=== PATIENT | male | born 1985 | race Caucasian/White ===

== ENCOUNTER 2019-09-27 19:28 | Emergency (ER) | payer OTHER ==
[~2019-09-27] VITALS: Ht 182.8 cm; Wt 78.9 kg
[~2019-09-27 19:28] MED LIST: ACETAMINOPHEN-H1 TA2 PO; ALLEGRA180 MG PO; AMOXICILLIN500 MG PO; AMOXIL500 MG PO; CLEOCIN150 MG PO; CLINDAMYCIN HC300 MG PO; CLINDAMYCIN150 MG PO; DAYPRO600 M1 PO; DOXYCYCLINE MO100 MG PO; FIORICET 325 MG1 TAB PO; FLEXERIL10 MG PO; Fioricet 325 MG1 TAB PO; HYDROCODONE BIT1 T11 PO; IBU-8800 MG PO; MOTRIN800 MG PO; NAPROSYN500 MG PO; NAPROXEN500 MG PO; NKHM; NORCO 325 MG-51 TAB PO; PEN-VEE K500 MG PO; PEN-VK500 MG PO; PERIDEX 480 ML480 ML PO; ROBITUSSIN AC 110 ML PO; ROBITUSSIN DM120 ML PO; TRAMADOL HCL50 MG PO; TYLENOL W/CODEI1 TA2 PO; ULTRAM50 MG PO; VIBRAMYCIN100 MG PO; VICODIN 5/500 505 MG PO; ZITHROMAX Z PA250 MG PO; ZOFRAN ODT4 MG SL
[2019-09-27] MEDS ORDERED: TESSALON PERLE100 M1 PO (21:04)
[2019-09-27] MEDS ORDERED: ZITHROMAX250 MG PO (21:04)
[2019-09-27] MEDS ORDERED: MEDROL DOSEPAK4 MG PO (21:04)
== END 2019-09-27 21:17 | disposition home or self-care (01) ==
LOC: ED 19:28
DX: J20.9 Acute bronchitis, unspecified (principal); Z91.030 Bee allergy status

== ENCOUNTER 2019-11-04 13:54 | Inpatient (IN) | payer OTHER ==
[2019-11-04] VITALS: BP 96/51
[~2019-11-04] VITALS: Ht 185.4 cm; Wt 76.9 kg
[~2019-11-04 13:54] MED LIST changes: +MEDROL DOSEPAK4 MG PO; +TESSALON PERLE100 M1 PO; +ZITHROMAX250 MG PO
[2019-11-04 13:55] VITALS: BP 130/71
[2019-11-04 14:24] LABS: BILIRUBIN NEGATIVE (NEGATIVE); BLOOD NEGATIVE (NEGATIVE); CLARITY CLEAR (CLEAR); COLOR YELLOW (YELLOW); GLUCOSE NEGATIVE (NEGATIVE); KETONE NEGATIVE (NEGATIVE); LEUKO ESTERASE NEGATIVE (NEGATIVE); NITRITE NEGATIVE (NEGATIVE); UROBILINOGEN 0.2 E.U./dl (0.2-1.0)
[2019-11-04 14:31] LABS: URINE AMPHETAMINES < 1000 (1000ng/ml); URINE BARBITURATES < 200 (200ng/ml); URINE BENZODIAZEPINES < 200 (200ng/ml); URINE CANNABINOIDS (THC) < 50 (50ng/ml); URINE COCAINE < 300 (300ng/ml); URINE METHADONE < 300 (300ng/ml); URINE OPIATES < 300 (300ng/ml)
[2019-11-04 14:36] LABS: URINE PHENCYCLIDINE < 25 (25ng/ml)
[2019-11-04 15:15] VITALS: BP 144/76
[2019-11-04] MEDS ORDERED: SUBOXONE 8 MG-1 EACH SL (15:16)
[2019-11-04 16:00] VITALS: BP 144/76
[2019-11-04 19:55] LABS: HEMATOCRIT 42.7 % (42.0-52.0); HEMOGLOBIN 14.2 g/dl (14.0-18.0); MEAN CELL VOLUME 85.7 fl (80.0-94.0); MEAN CORPUSCULAR HGB 28.5 pg (27.0-31.0); MEAN CORPUSCULAR HGB CONC 33.3 g/dl (33.0-37.0); MEAN PLATELET VOLUME 9.4 fl (9.6-12.3); PLATELET COUNT AUTOMATED 293 10*3/uL (130-400); RED BLOOD COUNT 4.98 10*6/uL (4.50-5.90); RED CELL DISTRI WIDTH 13.2 % (0-14.5)
[2019-11-04 20:00] VITALS: BP 124/61
[2019-11-04 20:10] LABS: ALBUMIN 3.5 gm/dl (3.1-4.5); ALKALINE PHOSPHATASE 87 U/L (45-117); BUN 13 mg/dl (7-24); CHLORIDE 104 mmol/L (98-107); CREATININE 0.93 mg/dL (0.70-1.30); POTASSIUM 3.9 mmol/L (3.5-5.1); SGOT/AST 30 IU/L (3-35); SGPT/ALT 53 U/L (12-78); SODIUM 137 mmol/L (136-145); TOTAL PROTEIN 7.9 gm/dL (6.4-8.2)
[2019-11-04 20:13] LABS: BASOPHILS 1 % (0-1); TOTAL CELLS COUNTED 100 #CELLS
[2019-11-04 20:14] LABS: PLATELET SUFFICIENCY NORMAL (NORMAL)
[2019-11-04 20:18] LABS: ETHYL ALCOHOL < 3.0 mg/dl (<3)
[2019-11-05] VITALS: BP 96/51
[2019-11-05 08:00] VITALS: BP 112/68
[2019-11-05 12:00] VITALS: BP 117/71
[2019-11-05 16:00] VITALS: BP 128/79
[2019-11-05 20:00] VITALS: BP 112/54
[2019-11-06] VITALS: BP 101/54
[2019-11-06 08:00] VITALS: BP 96/52
[2019-11-06 12:00] VITALS: BP 101/62
[2019-11-06 16:00] VITALS: BP 113/55
[2019-11-06 20:00] VITALS: BP 120/63
[2019-11-07] VITALS: BP 101/54
[2019-11-07 08:00] VITALS: BP 117/62
[2019-11-07] MEDS ORDERED: NATURE'S BLEND F1 MG PO (08:39)
[2019-11-07] MEDS ORDERED: ATARAX,VISTARIL50 MG PO (08:39)
[2019-11-07] MEDS ORDERED: THERA TABLET400 MCG PO (08:39)
[2019-11-07] MEDS ORDERED: METHOCARBAMOL750 M1 PO (08:39)
[2019-11-07] MEDS ORDERED: VITAMIN B-1100 M1 PO (08:39)
[2019-11-07] MEDS ORDERED: ZOFRAN 4 MG ED2 TAB PO (08:39)
[2019-11-07] MEDS ORDERED: ROPINIROLE HYD0.5 MG PO (08:39)
[2019-11-07] MEDS ORDERED: CYCLOBENZAPRINE10 MG PO (16:07)
== END 2019-11-07 09:00 | disposition home or self-care (01) | DRG 773 ==
LOC: ED 13:54 → 4E 14:37 → EDHOLD 14:37 → 4E 15:08
PROVIDERS: Emergency Medicine; ADMIT Internal Medicine
DX: F11.23 Opioid dependence with withdrawal (principal); R65.11 Systemic inflammatory response syndrome (SIRS) of non-infectious origin with acute organ dysfunction; F17.210 Nicotine dependence, cigarettes, uncomplicated; F31.9 Bipolar disorder, unspecified; F41.9 Anxiety disorder, unspecified; B19.20 Unspecified viral hepatitis C without hepatic coma; E44.0 Moderate protein-calorie malnutrition; Z91.030 Bee allergy status; Z80.8 Family history of malignant neoplasm of other organs or systems; Z82.5 Family history of asthma and other chronic lower respiratory diseases; Z68.22 Body mass index [BMI] 22.0-22.9, adult

== ENCOUNTER 2019-11-07 14:25 | Emergency (ER) | payer OTHER ==
[~2019-11-07] VITALS: Ht 185.4 cm; Wt 77.1 kg
[~2019-11-07 14:25] MED LIST changes: +ATARAX,VISTARIL50 MG PO; +METHOCARBAMOL750 M1 PO; +NATURE'S BLEND F1 MG PO; +ROPINIROLE HYD0.5 MG PO; +SUBOXONE 8 MG-1 EACH SL; +THERA TABLET400 MCG PO; +VITAMIN B-1100 M1 PO; +ZOFRAN 4 MG ED2 TAB PO
[2019-11-07] MEDS ORDERED: CYCLOBENZAPRINE10 MG PO (16:07)
== END 2019-11-07 16:12 | disposition home or self-care (01) ==
LOC: ED 14:25
DX: R11.2 Nausea with vomiting, unspecified (principal); R20.0 Anesthesia of skin; R20.2 Paresthesia of skin; R61 Generalized hyperhidrosis; T42.8X5A Adverse effect of antiparkinsonism drugs and other central muscle-tone depressants, initial encounter; F17.200 Nicotine dependence, unspecified, uncomplicated; Z91.030 Bee allergy status; Y92.89 Other specified places as the place of occurrence of the external cause

== ENCOUNTER 2020-02-15 02:34 | Emergency (ER) | payer OTHER ==
[~2020-02-15] VITALS: Wt 77.1 kg
[~2020-02-15 02:34] MED LIST changes: +CYCLOBENZAPRINE10 MG PO
== END 2020-02-15 03:31 | disposition home or self-care (01) ==
LOC: ED 02:34
DX: F32.9 Major depressive disorder, single episode, unspecified (principal); F15.10 Other stimulant abuse, uncomplicated; F11.129 Opioid abuse with intoxication, unspecified; F17.200 Nicotine dependence, unspecified, uncomplicated; Z91.030 Bee allergy status; Z88.8 Allergy status to other drugs, medicaments and biological substances; Z79.899 Other long term (current) drug therapy; Z98.890 Other specified postprocedural states

== ENCOUNTER 2020-04-17 11:08 | Emergency (ER) | payer OTHER ==
[~2020-04-17] VITALS: Ht 185.4 cm; Wt 72.6 kg
[2020-04-17] MEDS ORDERED: IBUPROFEN600 MG PO (14:42)
[2020-04-17] MEDS ORDERED: PREDNISONE20 M1 PO (15:05)
== END 2020-04-17 14:59 | disposition home or self-care (01) ==
LOC: ED 11:08
DX: M25.512 Pain in left shoulder (principal); F31.9 Bipolar disorder, unspecified; F41.9 Anxiety disorder, unspecified; F17.200 Nicotine dependence, unspecified, uncomplicated; Z91.030 Bee allergy status; Z88.8 Allergy status to other drugs, medicaments and biological substances; Z79.899 Other long term (current) drug therapy

== ENCOUNTER 2020-04-26 16:45 | Emergency (ER) | payer OTHER ==
[~2020-04-26] VITALS: Ht 182.8 cm; Wt 72.6 kg
[~2020-04-26 16:45] MED LIST changes: +IBUPROFEN600 MG PO; +PREDNISONE20 M1 PO
[2020-04-26 18:20] LABS: MEAN CORPUSCULAR HGB 27.9 pg (27.0-31.0); MEAN CORPUSCULAR HGB CONC 33.6 g/dl (33.0-37.0); MEAN PLATELET VOLUME 9.7 fl (9.6-12.3); PLATELET COUNT AUTOMATED 305 10*3/uL (130-400); RED BLOOD COUNT 5.06 10*6/uL (4.50-5.90); RED CELL DISTRI WIDTH 14.3 % (0-14.5); WHITE BLOOD COUNT 18.5 10*3/uL (4.8-10.8)
[2020-04-26 18:34] LABS: ALBUMIN 2.7 gm/dl (3.1-4.5); ALKALINE PHOSPHATASE 119 U/L (45-117); BUN 13 mg/dl (7-24); CHLORIDE 103 mmol/L (98-107); CREATININE 0.57 mg/dL (0.70-1.30); POTASSIUM 4.3 mmol/L (3.5-5.1); SGOT/AST 63 IU/L (3-35); SGPT/ALT 103 U/L (12-78); SODIUM 135 mmol/L (136-145); TOTAL PROTEIN 7.9 gm/dL (6.4-8.2)
[2020-04-26 18:39] LABS: PLATELET SUFFICIENCY NORMAL (NORMAL); TOTAL CELLS COUNTED 100 #CELLS
[2020-04-26 18:40] LABS: ACT PARTIAL THROMBO TIME 30.7 SECONDS (20.0-32.1)
[2020-04-26 21:20] LABS: URINE AMPHETAMINES < 1000 (1000ng/ml); URINE BARBITURATES < 200 (200ng/ml); URINE BENZODIAZEPINES < 200 (200ng/ml); URINE CANNABINOIDS (THC) > 50 (50ng/ml); URINE COCAINE < 300 (300ng/ml); URINE METHADONE < 300 (300ng/ml); URINE OPIATES < 300 (300ng/ml)
[2020-04-26 21:22] LABS: URINE PHENCYCLIDINE < 25 (25ng/ml)
== END 2020-04-27 00:13 | disposition short-term general hospital (02) ==
LOC: ED 16:45
PROVIDERS: Nurse Practitioner
DX: D72.829 Elevated white blood cell count, unspecified (principal); M25.511 Pain in right shoulder; R07.9 Chest pain, unspecified; Z88.8 Allergy status to other drugs, medicaments and biological substances; Z87.891 Personal history of nicotine dependence

== ENCOUNTER 2021-01-21 09:50 | Emergency (ER) | payer OTHER ==
[~2021-01-21] VITALS: Ht 185.4 cm; Wt 82.6 kg
[2021-01-21] MEDS ORDERED: 'CLONIDINE0.1 MG PO (12:04)
== END 2021-01-21 12:30 | disposition home or self-care (01) ==
LOC: ED 09:50
DX: F11.23 Opioid dependence with withdrawal (principal); F11.20 Opioid dependence, uncomplicated; F31.9 Bipolar disorder, unspecified; F41.9 Anxiety disorder, unspecified; F17.200 Nicotine dependence, unspecified, uncomplicated; Z88.8 Allergy status to other drugs, medicaments and biological substances; Z79.899 Other long term (current) drug therapy; Z98.890 Other specified postprocedural states

== ENCOUNTER 2021-03-22 11:33 | Inpatient (IN) | payer OTHER ==
[~2021-03-22] VITALS: Ht 185.4 cm; Wt 85.4 kg
[~2021-03-22 11:33] MED LIST changes: +'CLONIDINE0.1 MG PO
[2021-03-22 11:45] VITALS: BP 137/81
[2021-03-22 13:32] LABS: BILIRUBIN Negative (Negative); BLOOD Negative (Negative); CLARITY Clear (Clear); COLOR Yellow (Yellow); GLUCOSE Negative (Negative); KETONE Negative (Negative); LEUKO ESTERASE Negative (Negative); NITRITE Negative (Negative); UROBILINOGEN 0.2 E.U./dl (0.0-1.0)
[2021-03-22 13:40] LABS: URINE AMPHETAMINES > 1000 (1000ng/ml); URINE BARBITURATES < 200 (200ng/ml); URINE BENZODIAZEPINES < 200 (200ng/ml); URINE CANNABINOIDS (THC) > 50 (50ng/ml); URINE COCAINE < 300 (300ng/ml); URINE METHADONE < 300 (300ng/ml); URINE OPIATES < 300 (300ng/ml); URINE PHENCYCLIDINE < 25 (25ng/ml)
[2021-03-22] MEDS ORDERED: GABAPENTIN800 MG PO (14:33)
[2021-03-22] MEDS ORDERED: WELLBUTRIN XL300 MG PO (14:34)
[2021-03-22] MEDS ORDERED: SEROQUEL50 MG PO (14:34)
[2021-03-22] MEDS ORDERED: CLARITIN10 MG PO (14:34)
[2021-03-22] MEDS ORDERED: BUPRENORPHINE-1 EAC1 SL (14:35)
[2021-03-22 16:00] VITALS: BP 110/65
== END 2021-03-22 20:02 | disposition left against medical advice (07) | DRG 770 ==
LOC: 5E 11:33
PROVIDERS: Internal Medicine; Registered Nurse; ADMIT Internal Medicine; ATTEND Internal Medicine
DX: F11.23 Opioid dependence with withdrawal (principal); F17.210 Nicotine dependence, cigarettes, uncomplicated; F15.10 Other stimulant abuse, uncomplicated; F31.9 Bipolar disorder, unspecified; F63.81 Intermittent explosive disorder; L02.213 Cutaneous abscess of chest wall; F41.9 Anxiety disorder, unspecified; G47.00 Insomnia, unspecified; Z53.29 Procedure and treatment not carried out because of patient's decision for other reasons; Z80.52 Family history of malignant neoplasm of bladder; Z88.2 Allergy status to sulfonamides; Z88.8 Allergy status to other drugs, medicaments and biological substances

== ENCOUNTER 2022-03-06 10:53 | Emergency (ER) | payer OTHER ==
[~2022-03-06] VITALS: Ht 185.4 cm; Wt 94.3 kg
[~2022-03-06 10:53] MED LIST changes: +BUPRENORPHINE-1 EAC1 SL; +CLARITIN10 MG PO; +GABAPENTIN800 MG PO; +SEROQUEL50 MG PO; +WELLBUTRIN XL300 MG PO
== END 2022-03-06 13:56 | disposition left against medical advice (07) ==
LOC: ED 10:53
DX: M25.511 Pain in right shoulder (principal); M25.512 Pain in left shoulder; Z88.2 Allergy status to sulfonamides; Z79.899 Other long term (current) drug therapy; F17.200 Nicotine dependence, unspecified, uncomplicated